=== PATIENT | male | born 1995 | race Caucasian/White ===

== ENCOUNTER 2020-06-22 12:43 | Outpatient (CLI) | payer OTHER ==
[~2020-06-22 12:43] MED LIST: BUPIVACAINE/PF 0.5% ONE; LIDOCAINE 1%, 10ML ONE
[2020-06-22] MEDS ORDERED: OMNIPAQUE 300 MG/ML, 10ML VIAL ONE (12:55)
[2020-06-22] MEDS ORDERED: GADOTERATE 5 MMOL/10 ML VIAL ONE (12:55)
[2020-06-22] MEDS ORDERED: ROPivacaine/PF 0.2%, 10 ML ONE (13:23)
== END 2020-06-22 23:59 | disposition home or self-care (01) ==
LOC: RAD 12:43
PROVIDERS: ATTEND Physician Assistant Surgical
DX: M25.511 Pain in right shoulder (principal); M75.51 Bursitis of right shoulder
CPT/HCPCS: 23350; 73040; 73222; A9575; J2795; J3490; Q9967